=== PATIENT | female | born 1995 ===

== ENCOUNTER 2016-11-27 07:30 | Emergency (ER) | payer SELFPAY ==
--- NOTE | 2016-11-27 08:03 | C.PDOC ---
History Of Present Illness 21 y/o female presents to ED with complaints of sore throat and subjective intermittent fever for 2 days. Patient has no PMD and came to ED for evaluation of symptoms.Patient denies nausea, vomiting, headache or any other complaints at this time. (Val Maier) History Per: Patient History/Exam Limitations: None Onset/Duration Of Symptoms: Days Current Symptoms Are (Timing): Still Present Severity: Mild Time Seen by Provider: 11/27/16 07:35 Chief Complaint (Nursing): ENT Problem Past Medical History Reviewed: Historical Data, Nursing Documentation, Vital Signs - Medical History PMH: No Chronic Diseases Surgical History: No Surg Hx Family History: States: No Known Family Hx - Social History Hx Alcohol Use: Yes Hx Substance Use: No Vital Signs: Last Vital Signs Temp 101 F H 11/27/16 09:29 Pulse 86 11/27/16 09:29 Resp 18 11/27/16 09:29 BP 100/60 11/27/16 09:29 Pulse Ox 99 11/27/16 09:29 Review Of Systems Constitutional: Positive for: Fever. Negative for: Chills ENT: Positive for: Throat Swelling. Negative for: Ear Pain Respiratory: Negative for: Cough Gastrointestinal: Negative for: Nausea, Vomiting, Diarrhea Skin: Negative for: Rash Neurological: Negative for: Headache Physical Exam - Physical Exam Appears: Non-toxic, No Acute Distress Skin: Normal Color, Warm, Dry, No Rash Head: Atraumatic, Normacephalic Eye(s): bilateral: Normal Inspection, PERRL, EOMI Ear(s): Bilateral: Normal Nose: Normal Oral Mucosa: Moist Lips: Normal Appearing Throat: Erythema (L>R), Exudate (L>R) Neck: Normal ROM, Supple Chest: Symmetrical Cardiovascular: Rhythm Regular Respiratory: Normal Breath Sounds, No Accessory Muscle Use, No Rales, No Rhonchi , No Wheezing Gastrointestinal/Abdominal: Soft, No Tenderness, No Guarding, No Rebound Neurological/Psych: Oriented x3 ED Course And Treatment O2 Sat by Pulse Oximetry: 98 (RA) Pulse Ox Interpretation: Normal Progress Note: Treated with motrin 600 mg PO and decadron 8 mg PO. Rapid strep test (-). Treated with augmentin po. On re-evaluation abdomen soft non-tender Medical Decision Making Medical Decision Making: Plan: * Strep Throat test * Decadron, Ibuprofen (Val Maier) Disposition Counseled Patient/Family Regarding: Studies Performed, Diagnosis, Need For Followup - Disposition Disposition Time: 09:15 - POA Present On Arrival: None - Disposition Referrals: [facility] [Outside] [facility] [Outside] Disposition: HOME/ ROUTINE Condition: STABLE Additional Instructions: Follow up with PMD for further evaluation Prescriptions: Amoxicillin/Clavulanate [Augmentin 875 MG-125 MG] 1 tab PO BID #14 tab Ibuprofen [Motrin] 1 tab PO TID PRN #30 tab PRN Reason: Pain Instructions: Pharyngitis (ED) Forms: [employer]form (Macedonian) - Clinical Impression Clinical Impression: Pharyngitis - PA / RECORD PRODUCER / Resident Statement MD/DO has reviewed & agrees with the documentation as recorded. - Scribe Statement The provider has reviewed the documentation as recorded by the Scribe - Scribe Statement Waldemar Paez All medical record entries made by the Scribe were at my direction and personally dictated by me. I have reviewed the chart and agree that the record accurately reflects my personal performance of the history, physical exam, medical decision making, and the department course for this patient. I have also personally directed, reviewed, and agree with the discharge instructions and disposition. (Val Maier)
[2016-11-27] MEDS ORDERED: Amoxicillin-Clav 875-125 mg Tab PO STA (08:45)
[2016-11-27] MEDS ORDERED: Amoxicillin-Clav 875-125 mg Tab PO ONE (09:01)
[2016-11-27 09:29] VITALS: TEMP 101
[2016-11-27 09:30] VITALS: BP 100/60; PULSE 86; RESP 18; O2SAT 99
== END 2016-11-27 09:30 | disposition home or self-care (01) ==
LOC: C.ER 07:30
DX: J02.9 Acute pharyngitis, unspecified (principal)
CPT/HCPCS: 87070; 87430; 99283; J8540